=== PATIENT | female | born 1965 | race Caucasian/White ===

== ENCOUNTER → 2018-04-29 | Day surgery (SDC) | payer OTHER ==
[2014-09-28 13:50] VITALS: BP 139/81
[~2018-04-29] MED LIST: AZULFIDINE500 MG PO; CLINDAMYCIN300 MG PO; FLEXERIL10 MG PO; METHOTREXATE2.5 MG PO; NORCO 325 MG-51 TAB PO; PERCOCET 325 MG1 TA2 PO; PREDNISONE10 MG PO; SYNTHROID0.05 MG PO; SYNTHROID0.2 MG/TAB PO; ULTRAM 50MG TAB50 MG PO
== END ==
LOC: MSO 07:15
DX: Z12.11 Encounter for screening for malignant neoplasm of colon (principal); K57.30 Diverticulosis of large intestine without perforation or abscess without bleeding; Z87.891 Personal history of nicotine dependence; E03.9 Hypothyroidism, unspecified; M06.9 Rheumatoid arthritis, unspecified
CPT/HCPCS: 00812; J2704; J7120